=== PATIENT | male | born 1955 | race Caucasian/White ===

== ENCOUNTER 2024-03-24 12:50 | Observation (INO) | payer BC ==
[2024-03-24 13:04] VITALS: BMI 23.3
[2024-03-24] MEDS ORDERED: ACETAMINOPHEN 325 MG TABLET (FP) ONE (15:10)
[2024-03-24] MEDS: SODIUM CHLORIDE 0.9% 500 ML INFUS.BAG IV ONE (15:30)
[2024-03-24] MEDS: ACETAMINOPHEN 500 MG TABLET (FP) PO ONE (15:30)
[2024-03-24 15:40] LABS: BASO % 0.7 % (0-2.0); HEMATOCRIT 39.1 % (35.4-49); HEMOGLOBIN 13.6 GM/dL (11.7-16.9); LYMPH % 23.4 % (8-40); MCH 29.9 pg (25.7-33.7); MCHC 34.8 g/dl (32.0-35.9); MEAN PLT VOLUME 7.5 fl (7.5-11.1); MONO % 9.4 % (3.8-10.2); NEUT % 59.5 % (42.8-82.8); PLATELET COUNT 239 10^3/uL (134-434); RBC 4.55 M/mm3 (4.00-5.60); RDW 13.7 % (11.9-15.9); WHITE BLOOD COUNT 6.5 K/mm3 (4.0-10.0)
[2024-03-24 15:56] LABS: POTASSIUM 5.4 mmol/L (3.5-5.1)
[2024-03-24 15:58] LABS: CALCIUM 9.6 mg/dL (8.5-10.1)
[2024-03-24 15:59] LABS: ALBUMIN 4.3 g/dl (3.4-5.0); BLOOD UREA NITROGEN 21.9 mg/dL (7-18)
[2024-03-24 16:02] LABS: CREATININE 1.2 mg/dL (0.55-1.3)
[2024-03-24 16:04] LABS: BILIRUBIN,TOTAL 0.8 mg/dL (0.2-1); TOT PROT 7.9 g/dl (6.4-8.2)
[2024-03-24] MEDS ORDERED: DIPHTH,PERTUSS(ACELL),TET 0.5 ML DISP.SYRIN IM ONE (17:08)
[2024-03-24] MEDS: DIPHTH,PERTUSS(ACELL),TET 0.5 ML DISP.SYRIN IM ONE (17:14)
[2024-03-25 07:05] LABS: BASO % 0.5 % (0-2.0); EOS % 12.5 % (0-4.5); HEMATOCRIT 37.9 % (35.4-49); HEMOGLOBIN 13.1 GM/dL (11.7-16.9); MCHC 34.5 g/dl (32.0-35.9); MEAN PLT VOLUME 7.8 fl (7.5-11.1); MONO % 11.7 % (3.8-10.2); NEUT % 46.3 % (42.8-82.8); PLATELET COUNT 209 10^3/uL (134-434); RBC 4.36 M/mm3 (4.00-5.60); RDW 13.3 % (11.9-15.9); WHITE BLOOD COUNT 6.4 K/mm3 (4.0-10.0)
[2024-03-25 07:27] LABS: CALCIUM 8.4 mg/dL (8.5-10.1)
[2024-03-25 07:28] LABS: ALBUMIN 3.5 g/dl (3.4-5.0); BLOOD UREA NITROGEN 16.9 mg/dL (7-18); MAGNESIUM 1.8 mg/dL (1.8-2.4)
[2024-03-25 07:31] LABS: CREATININE 1.1 mg/dL (0.55-1.3); PHOSPHOROUS 3.1 mg/dL (2.5-4.9)
[2024-03-25 07:33] LABS: TOT PROT 6.6 g/dl (6.4-8.2)
[2024-03-25 09:42] LABS: URINE APPEARANCE CLEAR; URINE BILIRUBIN NEGATIVE (NEGATIVE); URINE COLOR YELLOW; URINE GLUCOSE (UA) NEGATIVE (NEGATIVE); URINE KETONE NEGATIVE (NEGATIVE); URINE LEUK ESTERASE NEGATIVE (NEGATIVE); URINE NITRITE NEGATIVE (NEGATIVE); URINE PROTEIN NEGATIVE (NEGATIVE); URINE UROBILINOGEN 0.2 mg/dL (0.2-1.0)
[2024-03-25] MEDS ORDERED: metoPROLOL SUCCINATE 25 MG TAB.SR.24H (FP) PO ONE (10:28)
[2024-03-25] MEDS ORDERED: ASPIRIN COATED 81 MG TABLET.EC ONE (10:28)
[2024-03-25] MEDS ORDERED: amLODIPine BESYLATE 10 MG TABLET (FP) ONE (10:28)
[2024-03-25] MEDS ORDERED: ENOXAPARIN NA (PORCINE) 40 MG/0.4 ML DISP.SYRIN SQ ONE (10:29)
[2024-03-25] MEDS: metoPROLOL SUCCINATE 25 MG TAB.SR.24H (FP) PO SCH (10:34)
[2024-03-25] MEDS: ENOXAPARIN NA (PORCINE) 40 MG/0.4 ML DISP.SYRIN SQ SCH (10:34)
[2024-03-25] MEDS: ASPIRIN COATED 81 MG TABLET.EC PO SCH (10:34)
[2024-03-25] MEDS: amLODIPine BESYLATE 10 MG TABLET (FP) PO SCH (10:34)
[2024-03-25] MEDS: ATORVASTATIN CA 20 MG TABLET (FP) PO SCH (21:17)
[2024-03-26] MEDS: LOSARTAN POTASSIUM 25 MG TABLET PO SCH (09:27)
[2024-03-26 12:26] VITALS: RESP 17
[2024-03-26 13:14] VITALS: BP 122/68; PULSE 64; TEMP 97.8
== END 2024-03-26 13:33 | disposition home or self-care (01) ==
LOC: JER 12:50 → JERBED 17:44 → UNDOADMOB 17:44 → OBSVTOIN 20:52 → INTOOBSV 20:52 → JERBED 03-25 09:10 → J4S 03-25 15:29
PROVIDERS: ADMIT Internal Medicine; ATTEND Internal Medicine
PROC: 3E0234Z Introduction of Serum, Toxoid and Vaccine into Muscle, Percutaneous Approach (ICD-10-PCS; principal; 2024-03-25)
DX: R55 Syncope and collapse (principal); I25.10 Atherosclerotic heart disease of native coronary artery without angina pectoris; E87.5 Hyperkalemia; I10 Essential (primary) hypertension; E78.5 Hyperlipidemia, unspecified
CPT/HCPCS: 0241U-QW; 36415; 70450-TC; 71045-TC-FY; 72125-TC; 80053; 81003; 82962; 83735; 84100; 84443; 84484; 85025; 90715; 93005; 93010; 93880-TC; 99285-25; G0378

== ENCOUNTER 2024-04-21 10:45 | Emergency (ER) | payer BC ==
[2024-04-21 11:07] VITALS: BP 160/77; PULSE 64; RESP 17; TEMP 98.6; BMI 25.0
== END 2024-04-21 11:35 | disposition home or self-care (01) ==
LOC: JERFT 10:45
DX: Z76.0 Encounter for issue of repeat prescription (principal)
CPT/HCPCS: 99282-25

== ENCOUNTER 2024-10-19 16:18 | Inpatient (IN) | payer BC ==
[2024-10-19 16:25] VITALS: BMI 22.6
[2024-10-19] MEDS: ASPIRIN 81 MG CHEWABLE TABLETS PO ONE (16:46)
[2024-10-19] MEDS ORDERED: ASPIRIN 81 MG CHEWABLE TABLETS ONE (16:46)
[2024-10-19 17:12] LABS: BASO % 0.5 % (0-2.0); EOS % 1.6 % (0-4.5); HEMATOCRIT 40.3 % (35.4-49); HEMOGLOBIN 13.7 GM/dL (11.7-16.9); LYMPH % 11.8 % (8-40); MCH 29.4 pg (25.7-33.7); MCHC 34.1 g/dl (32.0-35.9); MEAN CELL VOLUME 86.2 fl (80-96); MEAN PLT VOLUME 7.3 fl (7.5-11.1); MONO % 7.9 % (3.8-10.2); NEUT % 78.2 % (42.8-82.8); PLATELET COUNT 256 10^3/uL (134-434); RBC 4.67 M/mm3 (4.00-5.60); RDW 13.2 % (11.9-15.9); WHITE BLOOD COUNT 8.5 K/mm3 (4.0-10.0)
[2024-10-19 17:20] LABS: INR 1.11 (0.83-1.09); PROTHROMBIN TIME (PATIENT) 12.1 SEC (9.7-13.0)
[2024-10-19] MEDS: SODIUM CHLORIDE 0.9% 500 ML INFUS.BAG IV ONE (17:20)
[2024-10-19 17:22] LABS: ACTIVATED PTT 25.5 SECONDS (25.2-36.5)
[2024-10-19 17:44] LABS: ALBUMIN 4.2 g/dl (3.4-5.0); BLOOD UREA NITROGEN 14.2 mg/dL (7-18); CALCIUM 9.2 mg/dL (8.5-10.1)
[2024-10-19 17:46] LABS: POTASSIUM 4.6 mmol/L (3.5-5.1)
[2024-10-19 17:47] LABS: CREATININE 1.2 mg/dL (0.55-1.3)
[2024-10-19 17:49] LABS: BILIRUBIN,TOTAL 1.8 mg/dL (0.2-1); TOT PROT 7.9 g/dl (6.4-8.2)
[2024-10-19] MEDS ORDERED: CLOPIDOGREL BISULFATE 300 MG TABLET ONE (20:22)
[2024-10-19] MEDS ORDERED: metoPROLOL SUCCINATE 25 MG TAB.SR.24H (FP) PO ONE (20:23)
[2024-10-19] MEDS ORDERED: ATORVASTATIN CA 80 MG TABLET (FP) ONE (20:23)
[2024-10-19] MEDS: ATORVASTATIN CA 80 MG TABLET (FP) PO ONE (20:26)
[2024-10-19] MEDS: CLOPIDOGREL BISULFATE 300 MG TABLET PO ONE (20:26)
[2024-10-19] MEDS: metoPROLOL SUCCINATE 25 MG TAB.SR.24H (FP) PO ONE (20:26)
[2024-10-20] MEDS ORDERED: HEPARIN NA (PORCINE) 5,000 UNITS/ML 1ML VIAL IVPUSH PRN ×2 (01:25)
[2024-10-20] MEDS ORDERED: HEPARIN NA (PORCINE) 5,000 UNITS/ML 1ML VIAL ONE (01:35)
[2024-10-20] MEDS ORDERED: HEPARIN INFUSION - 25,000 UNITS/500 ML INFUS.BAG IVPB ONE (01:36)
[2024-10-20] MEDS: HEPARIN INFUSION - 25,000 UNITS/500 ML INFUS.BAG IVPB SCH (01:47)
[2024-10-20] MEDS: HEPARIN NA (PORCINE) 5,000 UNITS/ML 1ML VIAL IVPUSH ONE (01:47)
[2024-10-20 06:30] LABS: HEMATOCRIT 40.2 % (35.4-49); HEMOGLOBIN 13.8 GM/dL (11.7-16.9); MCH 29.8 pg (25.7-33.7); MCHC 34.4 g/dl (32.0-35.9); MEAN CELL VOLUME 86.6 fl (80-96); MEAN PLT VOLUME 7.8 fl (7.5-11.1); PLATELET COUNT 256 10^3/uL (134-434); RBC 4.64 M/mm3 (4.00-5.60); RDW 12.6 % (11.9-15.9); WHITE BLOOD COUNT 5.9 K/mm3 (4.0-10.0)
[2024-10-20 07:40] LABS: POTASSIUM 4.1 mmol/L (3.5-5.1); TOT PROT 6.7 g/dl (6.4-8.2)
[2024-10-20 07:43] LABS: BLOOD UREA NITROGEN 12.2 mg/dL (7-18); CALCIUM 8.6 mg/dL (8.5-10.1)
[2024-10-20 07:44] LABS: ALBUMIN 3.4 g/dl (3.4-5.0)
[2024-10-20 07:48] LABS: BILIRUBIN,TOTAL 1.4 mg/dL (0.2-1); CHOLESTEROL 201 mg/dL (50-200)
[2024-10-20] MEDS ORDERED: CLOPIDOGREL BISULFATE 75 MG TABLET (FP) ONE (09:29)
[2024-10-20] MEDS: CLOPIDOGREL BISULFATE 75 MG TABLET (FP) PO SCH (09:33)
[2024-10-20] MEDS: metoPROLOL SUCCINATE 25 MG TAB.SR.24H (FP) PO SCH (09:33)
[2024-10-20] MEDS: LOSARTAN POTASSIUM 25 MG TABLET PO SCH (09:33)
[2024-10-20] MEDS: ASPIRIN 81 MG CHEWABLE TABLETS PO SCH (09:33)
[2024-10-20] MEDS ORDERED: ENOXAPARIN NA (PORCINE) 40 MG/0.4 ML DISP.SYRIN SQ SCH (10:00)
[2024-10-20 10:11] LABS: BILIRUBIN,DIRECT 0.3 mg/dL (0.0-0.2)
[2024-10-20] MEDS ORDERED: hydrALAZINE HCL 20 MG/ML VIAL ONE (20:22)
[2024-10-20] MEDS: hydrALAZINE HCL 20 MG/ML VIAL IVPUSH ONE (20:29)
[2024-10-20 21:16] LABS: HEMATOCRIT 39.1 % (35.4-49); HEMOGLOBIN 13.3 GM/dL (11.7-16.9); MCH 29.2 pg (25.7-33.7); MEAN CELL VOLUME 85.9 fl (80-96); MEAN PLT VOLUME 7.2 fl (7.5-11.1); PLATELET COUNT 233 10^3/uL (134-434); RBC 4.56 M/mm3 (4.00-5.60); WHITE BLOOD COUNT 5.6 K/mm3 (4.0-10.0)
[2024-10-20] MEDS: ATORVASTATIN CA 40 MG TABLET (FP) PO SCH (22:39)
[2024-10-21 07:49] LABS: BASO % 0.9 % (0-2.0); EOS % 9.1 % (0-4.5); HEMOGLOBIN 12.9 GM/dL (11.7-16.9); LYMPH % 26.9 % (8-40); MCH 29.1 pg (25.7-33.7); MCHC 33.9 g/dl (32.0-35.9); MEAN CELL VOLUME 85.9 fl (80-96); MONO % 14.5 % (3.8-10.2); NEUT % 48.6 % (42.8-82.8); PLATELET COUNT 218 10^3/uL (134-434); RBC 4.43 M/mm3 (4.00-5.60); RDW 12.8 % (11.9-15.9)
[2024-10-21] MEDS ORDERED: ATORVASTATIN CA 80 MG TABLET (FP) PO SCH (07:49)
[2024-10-21 07:51] LABS: POTASSIUM 3.7 mmol/L (3.5-5.1)
[2024-10-21 08:02] LABS: CALCIUM 8.9 mg/dL (8.5-10.1)
[2024-10-21 08:03] LABS: ALBUMIN 3.2 g/dl (3.4-5.0); MAGNESIUM 1.7 mg/dL (1.8-2.4)
[2024-10-21 08:04] LABS: BLOOD UREA NITROGEN 10.6 mg/dL (7-18)
[2024-10-21 08:05] LABS: CREATININE 0.9 mg/dL (0.55-1.3)
[2024-10-21 08:06] LABS: BILIRUBIN,TOTAL 0.9 mg/dL (0.2-1); TOT PROT 6.3 g/dl (6.4-8.2)
[2024-10-21 09:57] VITALS: RESP 18; TEMP 98.1
[2024-10-21] MEDS: RANOLAZINE E.R. 500 MG TABLET (FP) PO SCH (10:02)
[2024-10-21] MEDS: LOSARTAN POTASSIUM 50 MG TABLET PO SCH (10:02)
[2024-10-21 11:12] VITALS: BP 165/89; PULSE 76
== END 2024-10-21 12:09 | disposition home or self-care (01) | DRG 282 ==
LOC: JER 16:18 → JERBED 18:55 → J4W 10-20 21:17
PROVIDERS: ADMIT Student in an Organized Health Care Education/Training Program; ATTEND Internal Medicine
DX: I21.4 Non-ST elevation (NSTEMI) myocardial infarction (principal); I25.10 Atherosclerotic heart disease of native coronary artery without angina pectoris; I10 Essential (primary) hypertension; R07.89 Other chest pain; E78.5 Hyperlipidemia, unspecified; R55 Syncope and collapse; R79.89 Other specified abnormal findings of blood chemistry; E80.6 Other disorders of bilirubin metabolism; R00.2 Palpitations; Z95.5 Presence of coronary angioplasty implant and graft
CPT/HCPCS: 36415; 71045-TC-FY; 76705-TC; 80053; 80061; 82248; 82465; 83735; 83880; 84484; 85025; 85027; 85610; 85730; 86850; 86900; 86901; 93005; 93010; 93306-TC; 99285-25; J1644